=== PATIENT | male | born 1975 | race Caucasian/White ===

== ENCOUNTER → 2016-06-25 | Outpatient (CLI) | payer BC ==
[~2016-06-25] MED LIST: CIPRO PO; FLOMAX0.4 MG PO; HYDROCODON-ACE1 EAC7 PO; MONDOXYNE NL100 MG PO; NO MEDICATIONS; TYLENOL #3 PO; VICODIN 5/500 T1 TAB PO
--- NOTE | ~2016-06-25 | US113 ---
[facility] A Service of [facility] RADIOLOGY TEXT RESULTS PATIENT: DALILA CASIANO LOCATION: [facility] : 75 UNIT #: [id number] AGE: [address]: Carlos Cobb MD SEX: M ORDER DR: [id number] [facility] [address] [place], [place] [address] [id number] O MR#: [id number] Acc #: [id number] NAME: DALILA CASIANO : 1975 SEX: M STUDY DATE/TIME: 06/25/2016 13:33 UNIT: CGUS ROOM: STUDY DESCRIPTION: US Scrotal Duplex Complete Attending Physician: Carlos Cobb M.D. Referring Physician: Carlos Cobb M.D. Ordering Physician: Carlos Cobb M.D. Primary Care Physician: Evert Guardado MEDICAL IMAGING REPORT This report is preliminary unless electronic signature is present EXAM Scrotal ultrasound examination including testicular Doppler vascular evaluation, 06/25/2016 HISTORY 41-year-old male with scrotal pain and swelling for 1 month. He notes recent blunt trauma to the scrotum. Previous symptoms with ultrasound examination August 2015 suggesting right unilateral epididymal orchitis. TECHNIQUE Scrotal ultrasound examination using high-resolution banerjee-scale, spectral Doppler and color flow Doppler ultrasound imaging. COMPARISON Scrotal ultrasound, 08/29/2015. FINDINGS Both testes are normal in size and ultrasound appearance. No evidence of mass or other focal testicular lesion. No evidence of traumatic testicular disruption. Small bilateral simple hydroceles. No evidence of complicated scrotal fluid collection. Doppler vascular evaluation shows no evidence of testicular torsion, and no convincing evidence of acute epididymitis or orchitis at this time. IMPRESSION 1. No acute intrascrotal abnormality is demonstrated. 2. Small bilateral simple hydroceles. 3. No Doppler evidence of testicular torsion, acute epididymitis or orchitis. [facility] A Service of [facility] RADIOLOGY TEXT RESULTS PATIENT: DALILA CASIANO LOCATION: [facility] : 75 UNIT #: [id number] AGE: [address]: Carlos Cobb MD SEX: M ORDER DR: Dictated by... Joaquim Stokes M.D. THIS IS AN ELECTRONICALLY VERIFIED REPORT Joaquim Stokes M.D. at 06/27/2016 9:15 AM LV/zoila TD: 06/25/2016 21:52 JOB #: [id number] MEDICAL IMAGING REPORT Page 1 of 1 COPY
== END | disposition home or self-care (01) ==
LOC: CGUS 13:09
DX: N43.3 Hydrocele, unspecified (principal); N43.2 Other hydrocele
CPT/HCPCS: 93975